=== PATIENT | male | born 1940 | race Caucasian/White ===

== ENCOUNTER 2024-05-10 09:59 | Observation (INO) | payer MEDICARE ==
[~2024-05-10] VITALS: Ht 188 cm; Wt 110.7 kg
[2024-05-10 10:34] LABS: BASOPHILS ABSOLUTE AUTO 0.08 K/mm3 (0.00-0.23); BASOPHILS PERCENT AUTO 1 % (0-2); EOSINOPHILS ABSOLUTE AUTO 0.29 K/mm3 (0.00-0.68); EOSINOPHILS PERCENT AUTO 4 % (0-6); Hematocrit 43.1 % (37.0-53.0); Hemoglobin 13.9 g/dL (13.5-17.5); IMMATURE GRAN ABSOLUTE AUTO 0.07 K/mm3 (0.00-0.10); IMMATURE GRAN PERCENT AUTO 1 % (0-1); LYMPHOCYTES ABSOLUTE AUTO 1.92 K/mm3 (0.84-5.20); LYMPHOCYTES PERCENT AUTO 24 % (21-46); MONOCYTES ABSOLUTE AUTO 0.88 K/mm3 (0.16-1.47); MONOCYTES PERCENT AUTO 11 % (4-13); Mean Corpuscular HGB 30.3 pg (26.0-34.0); Mean Corpuscular HGB Conc 32.3 g/dL (31.5-36.5); Mean Corpuscular Volume 94 fL (80-100); Mean Platelet Volume 9.1 fL (9.1-12.4); NEUTROPHILS PERCENT AUTO 59 % (41-73); Platelet Count 309 K/mm3 (150-400); RDW Coefficient Variation 13.9 % (11.7-14.2); RDW Standard Deviation 47.6 fL (35.1-46.3); Red Blood Cell Count 4.59 M/mm3 (4.30-5.90); White Blood Cell Count 7.94 K/mm3 (4.00-11.30)
[2024-05-10 11:09] LABS: Albumin, Blood 3.7 g/dL (3.4-5.0); Albumin/Globulin Ratio 0.8 (0.8-1.8); Bilirubin, Total 1.1 mg/dL (0.1-1.0); Bun/Creatinine Ratio 16.8 (12.0-20.0); Calcium, Blood 9.5 mg/dL (8.5-10.1); Creatinine, Blood 1.13 mg/dL (0.60-1.20); Globulin, Blood 4.9 g/dL (2.2-4.0); Potassium, Blood 4.2 mmol/L (3.5-5.5); Total Protein, Blood 8.6 g/dL (6.4-8.2)
[2024-05-10] MEDS ORDERED: Nitroglycerin Patch 0.4 MG / HR TOP ONE (11:25)
[2024-05-10] MEDS ORDERED: Aspirin 325 MG Tab PO ONE (11:25)
[2024-05-10] MEDS ORDERED: LOSA50 PO (11:39)
[2024-05-10 12:04] LABS: Anti-Xa UFH, PHA Monitoring <0.10 IU/mL; International Normalized Ratio 0.98; Prothrombin Time Results 10.5 Sec (9.7-11.5)
[2024-05-10] MEDS ORDERED: Heparin Sodium,Porcine/0.5 NS 500 ML IV SCH (12:20)
[2024-05-10] MEDS ORDERED: Heparin Sodium 5000 Units/ML 1ML MDV IV ONE (12:20)
[2024-05-10] MEDS ORDERED: Nitroglycerin 0.4 MG SUBL SL PRN ×2 (12:25→13:30)
[2024-05-10] MEDS ORDERED: Ipratropium/Albuterol SulF 2.5-0.5MG/3 ML Amp INH ONE (12:30)
[2024-05-10] MEDS ORDERED: FLU VACC TS2024-25(6MOS UP)/PF 45 MCG/0.5 ML SYRINGE IM ONE (13:25)
[2024-05-10] MEDS ORDERED: Albuterol 2.5 MG/3 ML VIAL INH PRN (13:25)
[2024-05-10] MEDS ORDERED: Chlorphiramine/Hydrod Polistir 5 ML UDC PO PRN (13:25)
[2024-05-10] MEDS ORDERED: Ondansetron HCl 2 MG / ML 2ML Vial IV PRN (13:30)
[2024-05-10] MEDS ORDERED: Doxycycline Hyclate 100 MG TAB PO SCH (14:00)
[2024-05-10 14:16] LABS: CORONAVIRUS COVID-19 AG Negative (NEGATIVE); INFLUENZA A AG Negative (NEGATIVE); INFLUENZA B AG Negative (NEGATIVE)
[2024-05-10 17:43] VITALS: BP 142/70
--- NOTE | 2024-05-10 18:30 | NUR ---
shift summary patient arrived to unit at 1725 from ER. patient is alert and oriented x4. neuro is intact. perrla. patient is hard of hearing and has hearing aides in bilaterally. patient has upper dentures and partial lower dentures in mouth. patient reports chest pain rated at 2/3. patient has nitro patch on chest that per orders is to be removed at 2200. denies shortness of breath. spo2 >90% on room air. tele afib in the 30s-50s. zoll pads in place. md yadav aware of heart rate and saw patient in the ER. admit is complete. admit shift assessment complete. patient educated on afib, heart attack, and angiogram and handouts provided to patient. patient verbalized understanding. patient to be npo at midnight for possible angiogram tomorrow.
--- NOTE | 2024-05-10 19:45 | NUR ---
ASSUMPTION OF CARE ASSUMED PT'S CARE AT 1900,BEDSIDE REPORT COMPLETED WITH DAYSGAFT NURSE.PLAN OF CARE REVIEWED.HEPARIN INFUSING AT 15UNITS/KG/HR,TEACHING ON S/S OF BLEEDING COMPLETED.PT VERBALIZES UNDERSTANDING.AFIB WITH HR IN THE 30'S,PT ASYMPTOMATIC.PACER PADS AT BEDSIDE.NITRO PATCH IN PLACE TO BE TAKEN OFF AT 2200 PER REPORT RECEIVED.PT DENIES FURTHER NEEDS.CALL LIGHT AND PT'S ITEMS WITHIN REACH.WILL CONTINUE TO MONITOR.
[2024-05-10 20:43] VITALS: BP 135/73
[2024-05-10] MEDS ORDERED: Docusate Sodium 100 MG Cap PO SCH (21:00)
[2024-05-11] VITALS (12 sets, daily range): BP systolic 126–152; BP diastolic 53–79
[2024-05-11 00:23] LABS: BASOPHILS ABSOLUTE AUTO 0.05 K/mm3 (0.00-0.23); BASOPHILS PERCENT AUTO 1 % (0-2); EOSINOPHILS ABSOLUTE AUTO 0.36 K/mm3 (0.00-0.68); EOSINOPHILS PERCENT AUTO 4 % (0-6); Hematocrit 36.3 % (37.0-53.0); Hemoglobin 11.8 g/dL (13.5-17.5); IMMATURE GRAN ABSOLUTE AUTO 0.05 K/mm3 (0.00-0.10); IMMATURE GRAN PERCENT AUTO 1 % (0-1); LYMPHOCYTES ABSOLUTE AUTO 2.08 K/mm3 (0.84-5.20); LYMPHOCYTES PERCENT AUTO 24 % (21-46); MONOCYTES ABSOLUTE AUTO 1.09 K/mm3 (0.16-1.47); MONOCYTES PERCENT AUTO 12 % (4-13); Mean Corpuscular HGB 30.6 pg (26.0-34.0); Mean Corpuscular HGB Conc 32.5 g/dL (31.5-36.5); Mean Corpuscular Volume 94 fL (80-100); Mean Platelet Volume 9.1 fL (9.1-12.4); NEUTROPHILS ABSOLUTE AUTO 5.17 K/mm3 (1.96-9.15); NEUTROPHILS PERCENT AUTO 59 % (41-73); Platelet Count 287 K/mm3 (150-400); RDW Standard Deviation 47.9 fL (35.1-46.3); Red Blood Cell Count 3.86 M/mm3 (4.30-5.90)
[2024-05-11 00:41] LABS: Albumin, Blood 3.1 g/dL (3.4-5.0); Albumin/Globulin Ratio 0.8 (0.8-1.8); Bilirubin, Total 0.8 mg/dL (0.1-1.0); Bun/Creatinine Ratio 16.4 (12.0-20.0); Calcium, Blood 8.6 mg/dL (8.5-10.1); Creatinine, Blood 1.16 mg/dL (0.60-1.20); Potassium, Blood 3.9 mmol/L (3.5-5.5); Total Protein, Blood 7.1 g/dL (6.4-8.2)
[2024-05-11] MEDS ORDERED: Dose Adjust by Pharmacy XX STA (01:23)
--- NOTE | 2024-05-11 05:42 | NUR ---
SHIFT SUMMARY PT HAS BEEN SLEEPING MOST OF THE NIGHT.AFIB WITH SLOW VENTRICULAR RATE 29-49.PT'S HR MOSTLY ABOVE 30BPM.PT ASYMPTOMATIC.PACER PADS IN PLACE.BP WNL.PT DENIES CHEST PAIN,DENIES SOB.HEPARIN GTT INFUSING ORDERED.PT DENIES NEEDS.CALL LIGHT AND PT'S ITEMS WITHIN REACH.WILL GIVE REPORT TO DAYSHIFT NURSE FOR CONTINUITY OF CARE.
[2024-05-11] MEDS ORDERED: Albuterol 2.5 MG/3 ML VIAL INH SCH (08:00)
[2024-05-11] MEDS ORDERED: Atorvastatin 40 MG Tab PO SCH (09:00)
[2024-05-11] MEDS ORDERED: Losartan Potassium 50 MG Tab PO SCH (09:00)
[2024-05-11] MEDS ORDERED: Aspirin 81 MG Chew PO SCH (09:00)
[2024-05-11] MEDS ORDERED: Heparin Sodium 1000 Units/ML 10ML MDV ONE (09:54)
[2024-05-11] MEDS ORDERED: Verapamil HCL 2.5 MG/ML 2ML Injection ONE (09:54)
[2024-05-11] MEDS ORDERED: NS 250 ML IV ONE (09:54)
[2024-05-11] MEDS ORDERED: NS 1,000 ML IV ONE ×2 (09:54→10:14)
[2024-05-11] MEDS ORDERED: Nitroglycerin 2 MG/20 ML BTL ONE (09:54)
[2024-05-11] MEDS ORDERED: FentaNYL Citrate 50 MCG/ML 2 ML Injection ONE (10:14)
[2024-05-11] MEDS ORDERED: Midazolam HCl 1MG / ML 2ML Vial ONE (10:14)
--- NOTE | 2024-05-11 10:44 | NUR ---
ASSUMPTION OF CARE: PATIENT IS ALERT AND ORIENTED X 4 FOR THIS RN, VERY [place], HEARING AIDS BILATERALLY, USING RIGHT ONLY AT THIS TIME. BARBARA IS AT [employer] HAS BEEN NPO SINCE 0000. ZOLL AND PADS AT BEDSIDE. 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 PATIENT TOLERATED PILLS WITH THIN LIQUIDS, MULTIPLE AT A TIME NO CONCERN. PATIENT MELLO AT BEDSIDE, EDUCATED ON PLAN EKG AM OBTAINED LORRI MENEZES CARDIOLOGY ROUNDED. HR AFIB WITH SLOW VENTRICULAR RATE 40-50'S NIGHT ENDORSED LOW IN THE 20'S ASYMPTOMATIC, CARDIOLOGY AWARE. PATIENT EDUCATED ON SEVERITY AND THAN AGREED TO ANGIO. NO ACUTE CONCERNS FROM THIS RN AT THIS TIME NOT NOTED. DENIED CHEST PAIN PRESSURE OR SOB AT REST. HAS BEEN BEDREST DUE TO HEARTRATE CONCERN AND RISK FOR SYNCOPAL EPISODE SCDS AT BEDSIDE.
[2024-05-11 12:06] LABS: C-REACTIVE PROTEIN, EXT RANGE 1.12 mg/dL (0.000-0.300)
[2024-05-11 12:08] LABS: C-Reactive Protein, High Sens. 11.2 mg/dL (0.000-3.000)
[2024-05-11] MEDS ORDERED: ATOR40TA PO (14:44)
[2024-05-11] MEDS ORDERED: ASPI81CH PO (14:44)
[2024-05-11] MEDS ORDERED: DOXYCYCLINE HY100 M2 PO (14:45)
[2024-05-11] MEDS ORDERED: VISBIOME 112.51 EACH PO (14:46)
[2024-05-11] MEDS ORDERED: ALBU90OI INH (14:47)
[2024-05-11] MEDS ORDERED: BENZ100A PO (14:48)
[2024-05-11] MEDS ORDERED: XARELTO20 MG PO (14:49)
--- NOTE | 2024-05-11 16:27 | NUR ---
discharge update note: PATIENT IS ALERT AND ORIENTED X 4 BREATHING TREATMENT GIVEN BY RT PRIOR TO DISCHARGE. PATIENT MEDICATION SENT TO [facility] IN [place] BY OTHER NURSING STAFF. ALL PATIENT CARE EDUCATION PREFORMED BY THIS RN AFTER [facility] GAVE PATIENT ZIO PATCH. PATIENT AND UNDERSTOOD TREATMENT PLAN , NEW MEDCIATION, RISK ASSOCIATED WITH EACH MEDICATION. PATIENT IV'S REMOVED TELE REMOVED. PATIENT VSS NO ACUTE SIGN OF DISTRESS. PATIENT WHEELED OUT VIA WC BY PCT. NO ACUTE CONCERNS FROM FAMILY PATIENT OR THIS RN. ANGIO SITE CARE COMPLETE NO OOZING HEMATOMA, SMALL SKIN TEAR NOTED DISTAL TO SITE, COVERED WITH BANDAID. PATIENT SITE LOOKS IMMACULATE CHG TEGADERM OVER SITE. INSTRUCTIONS UNDERSTOOD BY PATIENT AND . PATIENT DENIES CHEST PAIN PRESSURE OR SOB. TOLERATING MOBILITY WELL.
[2024-05-11] MEDS ORDERED: Lactobacil 2-S.Thermo-Bifido 1 1 Cap PO SCH (21:00)
== END 2024-05-11 17:00 | disposition home or self-care (01) ==
LOC: ER 09:59 → PCU 10:00 → ERHOLD 10:00 → PCU 17:29
PROVIDERS: Emergency Medicine; Student in an Organized Health Care Education/Training Program; ADMIT Internal Medicine
DX: I21.4 Non-ST elevation (NSTEMI) myocardial infarction (principal); I25.118 Atherosclerotic heart disease of native coronary artery with other forms of angina pectoris; I48.91 Unspecified atrial fibrillation; J20.9 Acute bronchitis, unspecified; I10 Essential (primary) hypertension; Z88.0 Allergy status to penicillin; Z79.899 Other long term (current) drug therapy
CPT/HCPCS: 36415; 71046; 76937; 80053; 83690; 84484; 85025; 85520; 85610; 85730; 86140; 86141; 87428-QW; 93005; 93010; 93246; 93306; 93454; 94640; 94664; 94760; 94762; 96374; 96376; 99152; 99153; 99285-25; A9270; C1769; C1887; C1894; G0378; J1644; J2250; J3010; J7030; J7050; Q9967

== ENCOUNTER → 2024-05-17 | Outpatient (CLI) | payer MEDICARE ==
[~2024-05-17] MED LIST: ALBU90OI INH; ASPI81CH PO; ATOR40TA PO; BENZ100A PO; DOXYCYCLINE HY100 M2 PO; LOSA50 PO; VISBIOME 112.51 EACH PO; XARELTO20 MG PO
[2024-05-17 17:38] LABS: BASOPHILS ABSOLUTE AUTO 0.08 K/mm3 (0.00-0.23); BASOPHILS PERCENT AUTO 1 % (0-2); EOSINOPHILS ABSOLUTE AUTO 0.38 K/mm3 (0.00-0.68); EOSINOPHILS PERCENT AUTO 4 % (0-6); Hemoglobin 12.8 g/dL (13.5-17.5); IMMATURE GRAN ABSOLUTE AUTO 0.05 K/mm3 (0.00-0.10); IMMATURE GRAN PERCENT AUTO 1 % (0-1); LYMPHOCYTES ABSOLUTE AUTO 1.82 K/mm3 (0.84-5.20); LYMPHOCYTES PERCENT AUTO 21 % (21-46); MONOCYTES ABSOLUTE AUTO 1.43 K/mm3 (0.16-1.47); MONOCYTES PERCENT AUTO 16 % (4-13); Mean Corpuscular HGB 30.7 pg (26.0-34.0); Mean Corpuscular HGB Conc 33.7 g/dL (31.5-36.5); Mean Corpuscular Volume 91 fL (80-100); Mean Platelet Volume 9.7 fL (9.1-12.4); NEUTROPHILS ABSOLUTE AUTO 4.98 K/mm3 (1.96-9.15); NEUTROPHILS PERCENT AUTO 57 % (41-73); Platelet Count 426 K/mm3 (150-400); RDW Coefficient Variation 13.4 % (11.7-14.2); RDW Standard Deviation 45.1 fL (35.1-46.3); Red Blood Cell Count 4.17 M/mm3 (4.30-5.90); White Blood Cell Count 8.74 K/mm3 (4.00-11.30)
[2024-05-17 19:51] LABS: Alanine Aminotransfer (ALT/SGP 23 U/L (12-78); Albumin, Blood 3.5 g/dL (3.4-5.0); Albumin/Globulin Ratio 0.8 (0.8-1.8); Alk Phos 117 U/L (50-136); Anion Gap 12 mmol/L (3-11); Aspartate Aminotrans (AST/SGOT 18 U/L (12-37); Bilirubin, Total 1.1 mg/dL (0.1-1.0); Blood Urea Nitrogen 20 mg/dL (8-24); Bun/Creatinine Ratio 16.5 (12.0-20.0); CO2, Blood 23 mmol/L (21-32); Calcium, Blood 9.2 mg/dL (8.5-10.1); Chloride, Blood 105 mmol/L (98-108); Cholesterol 113 mg/dL (50-200); Creatinine, Blood 1.21 mg/dL (0.60-1.20); Globulin, Blood 4.5 g/dL (2.2-4.0); Glomerular Filtration Rate 59 (60-); Glucose, Blood 107 mg/dL (70-99); HDL Cholesterol 38 mg/dL (>39); LDL/HDL RATIO 1.5; Low Density Lipoprotein Chol 56 mg/dL (0-110); Potassium, Blood 4.1 mmol/L (3.5-5.5); Sodium, Blood 136 mmol/L (136-145); Triglycerides 93 mg/dL (30-160); Very Low Density Lipoprot Chol 18 mg/dL (6-32)
== END | disposition home or self-care (01) ==
LOC: LAB SHORT 16:19 → LAB 16:19
DX: I25.10 Atherosclerotic heart disease of native coronary artery without angina pectoris (principal); I25.2 Old myocardial infarction; E66.9 Obesity, unspecified; R73.9 Hyperglycemia, unspecified
CPT/HCPCS: 80053; 80061; 83036; 85025

== ENCOUNTER 2024-06-24 06:51 | Day surgery (SDC) | payer MEDICARE ==
[~2024-06-24] VITALS: Ht 188 cm; Wt 111.6 kg
[2024-06-24] VITALS (16 sets, daily range): BP systolic 131–163; BP diastolic 69–104
[2024-06-24] MEDS ORDERED: NS 1,000 ML IV ONE ×3 (07:04→07:37)
[2024-06-24] MEDS ORDERED: Heparin Sodium 1000 Units/ML 10ML MDV ONE ×3 (07:04→08:40)
[2024-06-24] MEDS ORDERED: NS 500 ML IV ONE (07:11)
[2024-06-24] MEDS ORDERED: Vitamin D1000 UNI1 PO (07:24)
[2024-06-24] MEDS ORDERED: PRESERVISION A1 EAC1 PO (07:24)
[2024-06-24] MEDS ORDERED: Vancomycin HCL 2,000 MG in NS 500 ML IV SCH (07:55)
[2024-06-24] MEDS ORDERED: Midazolam HCl 1MG / ML 2ML Vial ONE (08:34)
[2024-06-24] MEDS ORDERED: FentaNYL Citrate 50 MCG/ML 2 ML Injection ONE (08:34)
[2024-06-24] MEDS ORDERED: Atropine Sulfate 0.1 MG/ML 10ML SYR ONE (08:54)
--- NOTE | 2024-06-24 09:55 | NUR ---
ASSUMED CARE OF PT POST PROCEDURE. PT AWAKE AND ALERT, CONVERSING APPROPRIATELY; DENIES PAIN POST PROCEDURE. MONITOR V PACED 60, B/P 154/89, SPO2 100 % RA. R GROIN (VENOUS) NO SWELLING/HEMATOMA, PURSE STRING SUTURE IN PLACE, TEGADERM DRSG INTACT. PT TAKING SIPS OF H20 WITHOUT ISSUE, PT'S AT BEDSIDE, ATTENTIVE.
--- NOTE | 2024-06-24 14:15 | NUR ---
DR BARNETT REMOVED PURSE STRING DRESSING AND DRESSED SITE WITH GAUZE AND OPSITE; PT TOLERATED DRESSING WELL. PT'S HOB ELEVATED TO 30 DEGREES, SITE REMAINS UNCHANGED.
--- NOTE | 2024-06-24 14:48 | NUR ---
PT TO IMAGING FOR 2 VIEW CXR.
--- NOTE | 2024-06-24 14:58 | NUR ---
PT RETURNED FROM IMAGING, SITE REMAINS UNCHANGED.
--- NOTE | 2024-06-24 15:20 | NUR ---
PT DRESSED SELF WITHOUT ISSUE, SITE UNCHANGED; IV REMOVED-CANNULA INTACT.
--- NOTE | 2024-06-24 15:30 | NUR ---
PT AND RECEIVED DISCHARGE INSTRUCTIONS, MED LIST AND AFTER CARE INSTRUCTIONS; VERBALIZED GOOD UNDERSTANDING. PT LEFT FACILITY VIA W/C, CONDITION STABLE.
== END 2024-06-24 16:49 | disposition home or self-care (01) ==
LOC: MHTC 06:51
DX: I48.91 Unspecified atrial fibrillation (principal); I45.5 Other specified heart block; I49.5 Sick sinus syndrome; I25.10 Atherosclerotic heart disease of native coronary artery without angina pectoris; E78.5 Hyperlipidemia, unspecified; I12.9 Hypertensive chronic kidney disease with stage 1 through stage 4 chronic kidney disease, or unspecified chronic kidney disease; N18.30 Chronic kidney disease, stage 3 unspecified; Z88.0 Allergy status to penicillin
CPT/HCPCS: 33274; 71046; 76937; 93005; 93010; 99152; 99153; C1769; C1786; C1894; J0461; J1644; J2250; J3010; J3370; J7030; J7040; Q9967